=== PATIENT | female | born 1940 | race Caucasian/White ===

== ENCOUNTER 2018-02-25 22:32 | Emergency (ER) | payer MEDICAID ==
[~2018-02-25] VITALS: Ht 149.9 cm; Wt 56.0 kg
[2018-02-25] MEDS ORDERED: SODIUM CHLORIDE 0.9% 1,000 ML IV ONE (23:15)
[2018-02-25 23:33] LABS: HEMATOCRIT 31.5 % (36.0-48.0); HEMOGLOBIN 10.7 g/dL (12.0-16.0); MEAN CORPUSCULAR HEMOGLOBIN 29.6 pg (28.0-32.0); MEAN CORPUSCULAR VOLUME 87.5 fL (81.0-99.0); PLATELET 439 x1000/uL (130-400); RED CELL DISTRIBUTION WIDTH 13.5 % (11.6-14.6)
[2018-02-25 23:40] LABS: CHLORIDE 98 mEq/L (98-107)
[2018-02-26 00:06] LABS: BETA HYDROXYBUTYRATE < 0.1 mMol/L (0.0-0.3)
[2018-02-26 01:19] LABS: CLARITY URINE CLEAR (CLEAR); COLOR URINE YELLOW (YELLOW); KETONES URINE NEGATIVE (NEGATIVE); LEUKOCYTE ESTERASE URINE 2+ (NEGATIVE); NITRITE URINE NEGATIVE (NEGATIVE); OCCULT BLOOD URINE NEGATIVE (NEGATIVE); PROTEIN URINE 1+ (NEGATIVE); SPECIFIC GRAVITY URINE 1.007 (1.005-1.030); UROBILINOGEN URINE 0.2 E.U./dL (0.2-1.0)
[2018-02-26] MEDS ORDERED: CEFTRIAXONE 1 G PREMIX 50 ML IV ONE (02:30)
[2018-02-26] MEDS: CEFTRIAXONE 1 G PREMIX 50 ML IV NR ×2 (02:55→02:57)
[2018-02-26 04:01] VITALS: BP 166/70
== END 2018-02-26 04:07 | disposition home or self-care (01) ==
LOC: ER 22:32
DX: E11.65 Type 2 diabetes mellitus with hyperglycemia (principal); N39.0 Urinary tract infection, site not specified; N17.9 Acute kidney failure, unspecified; I10 Essential (primary) hypertension; E78.00 Pure hypercholesterolemia, unspecified
CPT/HCPCS: 36415; 80053; 81003; 82010; 82947; 82962; 85027; 87077; 87086; 87186; 96361; 96365; 96376; 99284; J0696; J7030